=== PATIENT | female | born 1935 | race Caucasian/White ===

== ENCOUNTER 2017-01-21 11:31 | Day surgery (SDC) | payer MEDICARE, BC ==
[2017-01-21] VITALS (14 sets, daily range): BP systolic 144–175; BP diastolic 72–112; PULSE 75–92; RESP 14–22; Ht 157.5 cm; Wt 64.0 kg
[~2017-01-21] VITALS: Ht 157.5 cm; Wt 64.0 kg
[2017-01-21] MEDS ORDERED: METO-448 PO (12:42)
[2017-01-21] MEDS ORDERED: NALOXONE (0.4 MG/ML) INJ ONE (13:42)
[2017-01-21] MEDS ORDERED: ROCURONIUM 50 MG INJ ONE (13:42)
[2017-01-21] MEDS ORDERED: SUCCINYLCHOLINE CHLORIDE 100 MG/5 ML SYG IV ONE (13:42)
[2017-01-21] MEDS ORDERED: FENTAnyl 50 MCG/ML VIAL ONE ×2 (13:42→14:23)
[2017-01-21] MEDS ORDERED: MIDAZOLAM 1 MG/ML 2 ML INJ ONE (13:42)
[2017-01-21] MEDS ORDERED: CEFAZOLIN 1 GM INJ ONE (13:42)
[2017-01-21] MEDS ORDERED: PROPOFOL 20 ML ONE (13:42)
--- NOTE | 2017-01-21 13:43 | HPN ---
Date/Time of Note Date/Time of Note DATE: 01/21/17 TIME: 13:43 Interval H&P Admission Note Pt. seen H&P reviewed: No system changes JULIAN BONE MD Jan 21, 2017 13:43
[2017-01-21] MEDS ORDERED: METOCLOPRAMIDE 10 MG INJ ONE (14:10)
[2017-01-21] MEDS ORDERED: ONDANSETRON 4 MG INJ ONE (14:10)
[2017-01-21] MEDS ORDERED: DEXAMETHASONE 4 MG/ML 1 ML INJ ONE (14:10)
[2017-01-21] MEDS ORDERED: LIDOCAINE 2% JELLY 5 ML ONE (14:12)
[2017-01-21] MEDS ORDERED: LABETALOL HCL 20MG INJ ONE (14:25)
[2017-01-21] MEDS ORDERED: SUGAMMADEX SODIUM 200 MG/2 ML VIAL IV ONE (14:56)
--- NOTE | 2017-01-21 15:17 | OPR ---
Date/Time of Note Date/Time of Note DATE: 01/21/17 TIME: 15:13 Operative Report Procedure Date: Jan 21, 2017 Preoperative Diagnosis Left thyroid nodule, compressive goiter. Postoperative Diagnosis Same Operation/Procedure Performed Left thyroid lobectomy. Surgeon Julian Holly Sponsorship Coordinator Salima Dolan Anesthesia Type: general Estimated Blood Loss: 50 - 100 ml's Transfusion none Specimen Left thyroid lobe. Grafts/Implants none Tubes/Drains None Complications none Pt Condition Post Procedure: stable Disposition: PACU Indications Compressive left thyroid mass. Procedure Description Description of procedure: The patient was identified in the holding area. We had a discussion to confirm understanding of indications, risks, benefits, alternatives and postoperative care associated with the operation. Informed consent was signed. The patient was taken the operating room and placed supine on the operating table. General endotracheal anesthesia was achieved with minimal difficulty. A shoulder roll was placed. The neck was prepped and draped in normal sterile fashion. A 15 blade was used to make a horizontal incision in a preexisting cervical crease. Subplatysmal flaps were elevated circumferentially. The midline raphe between the strap muscles was identified and vertically divided using monopolar cautery. The left sided strap muscles were elevated off the thyroid lobe. Dissection was fairly easy as there were no adhesions or signs of invasion.The superior pole of the thyroid gland was identified and bluntly dissected free to isolate the superior laryngeal nerve and the super pole vascular pedicle. The nerve was kept intact as the vessels were individually ligated and transected with the Liga-sure small jaw. In addition hemoclips were used to assure continued hemostasis. More inferiorly, the middle thyroid vein was taken after careful ligation and transection and dissection in the tracheoesophageal groove was used to identify the recurrent laryngeal nerve. It was followed superiorly to the cricothyroid joint and in this area the the superior parathyroid gland was identified. The parathyroid was carefully dissected laterally saving the pedicle after which overlying thyroid tissue was from its fibrous attachments to the surrounding soft tissues with the bipolar forceps. More inferior dissection was used to free the entirety of the recurrent laryngeal nerve. The inferior parathyroid and surrounding fat pad was at this point identified and swept laterally, again sparing the pedicle. Careful inspection and palpation of the level 6 [place] basin at this point revealed no adenopathy and normal course of RLN. The thyroidectomy commenced in a lateral to medial fashion, dissecting the thyroid gland off of the recurrent nerve towards the trachea after which it was transected past the isthmus and sent for evaluation by pathology. 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 The wound was irrigated with copious amounts of saline. Valsalva was performed. There was no bleeding or oozing. A 3-0 Vicryl was used to reapproximate the strap muscles in midline after which the same suture was used to reapproximate the platysma in interrupted buried fashion. Running 4-0 Monocryl was used to reapproximate the skin. The patient tolerated the procedure well and was extubated, taken to PACU in stable condition. Complications: None JULIAN HOLLY MD Jan 21, 2017 15:17
[2017-01-21] MEDS ORDERED: MEPERIDINE 25 MG INJ IV PRN (15:30)
[2017-01-21] MEDS ORDERED: FENTAnyl 50 MCG/ML VIAL IV PRN ×2 (15:30)
[2017-01-21] MEDS ORDERED: ONDANSETRON 4 MG INJ IV PRN (15:30)
[2017-01-21] MEDS ORDERED: EPHEDrine SULFATE 50 MG/5 ML SYG IV PRN (15:30)
[2017-01-21] MEDS ORDERED: HYDROCODONE/APAP (5/325) TAB PO PRN (15:30)
[2017-01-21] MEDS ORDERED: morphine (1 MG/ML) 10ML SYRINGE IV PRN ×2 (15:30)
[2017-01-21] MEDS ORDERED: hydrALAzine 20 MG INJ IV PRN (15:30)
[2017-01-21] MEDS ORDERED: DIPHENHYDRAMINE 50 MG INJ IV PRN (15:30)
[2017-01-21] MEDS ORDERED: LABETALOL HCL 20MG INJ IV PRN (15:30)
== END 2017-01-21 17:18 | disposition home or self-care (01) ==
LOC: SDS 11:31
PROVIDERS: ATTEND Otolaryngology
DX: C73 Malignant neoplasm of thyroid gland (principal); I10 Essential (primary) hypertension
CPT/HCPCS: 60220; 88307; J0360; J0690; J1100; J2250; J2270; J2310; J2405; J2765; J3010; J7999

== ENCOUNTER 2017-04-09 20:38 | Emergency (ER) | payer BC, MEDICARE ==
[~2017-04-09] VITALS: Ht 162.6 cm; Wt 67.2 kg
[~2017-04-09 20:38] MED LIST: ASPI-664 PO; METO-448 PO
[2017-04-09 21:23] VITALS: Ht 162.6 cm; Wt 67.2 kg
== END 2017-04-09 23:08 | disposition left against medical advice (07) ==
LOC: E/R 20:38
DX: Z53.21 Procedure and treatment not carried out due to patient leaving prior to being seen by health care provider (principal)

== ENCOUNTER → 2017-12-25 | Outpatient (CLI) | END | disposition home or self-care (01) ==